=== PATIENT | female | born 1990 | race Caucasian/White ===

== ENCOUNTER 2016-11-13 08:50 | Emergency (ER) | payer MEDICAID ==
[~2016-11-13] VITALS: Ht 165.1 cm; Wt 65.0 kg
[~2016-11-13 08:50] MED LIST: MOTR200T4 PO; NAPR220T95 PO; SUDA30TA2 PO; bcp PO
[2016-11-13 08:52] VITALS: BP 114/68; PULSE 88; RESP 20; TEMP 97.6; O2SAT 95
[2016-11-13] MEDS ORDERED: PREN29TA PO (09:12)
--- NOTE | 2016-11-13 09:16 | PD ---
HPI Chief Complaint: Flank/Kidney Pain Time Seen by Provider: 09:01 Travel History International Travel<30 days: No Contact w/Intl Traveler<30days: No Traveled to known affect area: No History of Present Illness HPI The patient was seen and examined in the presence of the nurse. This patient complains of pain in her right back. No injury. Seems to bother only in the morning. Currently has minimal symptoms. She has missed one menstrual period and went to the Center where a was confirmed and estimated to be 4 or 5 weeks. She has no pelvic pain or vaginal bleeding. No vomiting or diarrhea or fever or respiratory symptoms. Duration 3 days PFSH Past Medical History Anxiety: Yes ?: LMP: SEP 2016 : 3 Para: 2 Past Surgical History Section: Yes Social History Alcohol Use: No Tobacco Use: No Substance Use: No Allergies-Medications (Allergen,Severity, Reaction): Coded Allergies: Invega Sustenna (Verified Adverse Reaction, Unknown, elevated hormone , 09/04/16) [place] (Verified Adverse Reaction, Unknown, vomiting, 09/04/16) Uncoded Allergies: saphris (Adverse Reaction, Unknown, face numbness, 09/04/16) Reported Meds & Prescriptions Reported Meds & Active Scripts Active Reported Plus Iron 29-1 mg ( Vit-Iron Carbonyl) 1 Tab Tab 1 Tab PO DAILY Review of Systems General / Constitutional: No: Fever Eyes: No: Visual changes HENT: No: Headaches Cardiovascular: No: Chest Pain or Discomfort Respiratory: No: Shortness of Breath Gastrointestinal: No: Abdominal Pain Genitourinary: No: Dysuria Musculoskeletal: Positive: Pain Skin: No Rash Neurologic: No: Weakness Psychiatric: No: Depression Endocrine: No: Polydipsia Hematologic/Lymphatic: No: Easy Bruising Physical Exam Narrative GENERAL: Well-nourished, well-developed patient in no apparent distress. SKIN: Warm and dry. HEAD: Atraumatic. Normocephalic. EYES: Pupils equal and round. No scleral icterus. No injection or drainage. ENT: No nasal bleeding or discharge. Mucous membranes pink and moist. NECK: Trachea midline. No JVD. CARDIOVASCULAR: Regular rate and rhythm. No murmur appreciated. RESPIRATORY: No accessory muscle use. Clear to auscultation. Breath sounds equal bilaterally. GASTROINTESTINAL: Abdomen soft, non-tender, nondistended. Hepatic and splenic margins not palpable. MUSCULOSKELETAL: No obvious deformities. No clubbing. No cyanosis. No edema. Reproducible tenderness in the right mid back. No bruising or swelling or spasm NEUROLOGICAL: Awake and alert. No obvious cranial nerve deficits. Motor grossly within normal limits. Normal speech. PSYCHIATRIC: Appropriate mood and affect; insight and judgment normal. Data Data Last Documented VS Vital Signs Date Time Temp Pulse Resp B/P Pulse Ox O2 Delivery O2 Flow Rate FiO2 11/13/16 08:52 97.6 88 20 114/68 95 Room Air Orders Urinalysis - C+S If Indicated (11/13/16 09:12) Labs Laboratory Tests Test 11/13/16 09:15 Urine Color YELLOW Urine Turbidity HAZY Urine pH 7.0 Urine Specific [place] 1.016 Urine Protein NEG mg/dL Urine Glucose (UA) NEG mg/dL Urine Ketones NEG mg/dL Urine Occult Blood NEG Urine Nitrite NEG Urine Bilirubin NEG Urine Urobilinogen LESS THAN 2.0 MG/DL Urine Leukocyte Esterase NEG Urine RBC 2 /hpf Urine WBC LESS THAN 1 /hpf Urine Squamous Epithelial 13 /hpf Cells Urine Amorphous Sediment RARE Urine Mucus FEW /lpf Microscopic Urinalysis Comment CULT NOT INDICATED MDM Medical Decision Making Medical Screen Exam Complete: Yes Emergency Medical Condition: Yes Medical Record Reviewed: Yes Differential Diagnosis Lumbar strain, sciatica, pyelonephritis Narrative Course I have reviewed the patient's electronic medical record. Urinalysis is normal Patient was likely stable with minimal symptoms and normal vital signs and exam without objective findings I think her pain is musculoskeletal in nature Expect gradual resolution I don't think this is having do with her Diagnosis Primary Impression: Back pain affecting Additional Instructions: The patient was advised to follow up with their physician and return if they worsen. Med/Other Pt SpecificInfo: Other Disposition: 01 DISCHARGE HOME Condition: Stable Ian Herrera MD Nov 13, 2016 09:16
[2016-11-13 09:29] LABS: BLOOD, URINE NEG (NEG); COMMENT (UR) CULT NOT INDICATED; CULTURE IF INDICATED CULT NOT INDICATED; GLUCOSE,URINE NEG (NEG); KETONE, URINE NEG (NEG); MUCUS URINE FEW /lpf (OCC); NITRITE,URINE NEG (NEG); SQUAMOUS EPITHELIAL CELL URINE 13 /hpf (0-5); URINE COLOR YELLOW (YELLW/STRAW)
== END 2016-11-13 09:51 | disposition home or self-care (01) ==
LOC: NEPC 08:50
DX: O26.91 Pregnancy related conditions, unspecified, first trimester (principal); M54.9 Dorsalgia, unspecified; Z3A.01 Less than 8 weeks gestation of pregnancy
CPT/HCPCS: 81001; 99283

== ENCOUNTER 2017-04-04 16:57 | Emergency (ER) | payer MEDICAID ==
[~2017-04-04 16:57] MED LIST changes: -MOTR200T4 PO; -NAPR220T95 PO; +PREN29TA PO; -SUDA30TA2 PO; -bcp PO
--- NOTE | 2017-04-04 18:39 | PD ---
HPI Chief Complaint dizzy, SOB, heart palpitations Date Seen: Apr 04, 2017 Travel History International Travel<30 Days: No Contact w/Intl Traveler<30Days: No Known Affected Area: No History of Present Illness HPI 26y/o , IUP at 27.1 PNC complicated by h/o depression (no meds x6y), C/S x2, back problems and h/o herniated disc Patient presents c/o intermittent episodes of dizzyness that is associated with SOB and palitations several times a day. She reports these episodes last up to a hlaf hour and this last occurred this morning at 9:30am. She didn't come in initially because she was called into work. She reports these episodes start with feeling dizzy and associated difficulty breathing; she reports that she feels like her heart is going to "beat out of her chest" with palpitations. She reports she usually feels like she's going to pass out and felt that way this morning. She reports that the symptoms improve with lying down. She denies any N /V, F/C. She reports good FM. She denies any LOF or VB. She denies any ctx or painful cramping. She has no other complaints today. She reports she called her dr office and was told to come to [facility]. Para: 2 : 3 Miscarriage: 0 : 0 History Past Medical History Narrative Medical Depression Back issues Herniated discs Obstetric History Obstetric History FT C/S x2 Past Surgical History Narrative Surgical C/S x2 Family History Narrative Family History HTN Autism MR FAS Seizure d/o CAD [place] Social History Alcohol Use: No Tobacco Use: No Substance Abuse: No Allergies-Medications (Allergen,Severity, Reaction): Coded Allergies: Invega Sustenna (Verified Adverse Reaction, Unknown, elevated hormone , 09/04/16) [place] (Verified Adverse Reaction, Unknown, vomiting, 09/04/16) Uncoded Allergies: saphris (Adverse Reaction, Unknown, face numbness, 09/04/16) Home Meds Reported Medications Vit-Iron Carbonyl ( Plus Iron 29-1 mg)1 Tab Tab1 Tab PO DAILY #30 TAB Ref 0 11/13/16 Review of Systems Except as stated in HPI: all other systems reviewed are Neg Cardiovascular: Irregular Rhythm, Palpitations Respiratory: Short of Breath Neurologic: Dizziness Physical Exam Narrative GENERAL: Well-nourished, well-developed patient. SKIN: Warm and dry. HEAD: Normocephalic and atraumatic. EYES: No scleral icterus. No injection or drainage. ENT: No nasal drainage noted. Mucous membranes pink. Airway patent. NECK: Supple, trachea midline. No JVD. CARDIOVASCULAR: Regular rate and rhythm without murmurs, gallops, or rubs. RESPIRATORY: Breath sounds equal bilaterally. No accessory muscle use. BREASTS: Bilateral exam showed no masses , no retractions, no nipple discharge. ABDOMEN/GI: Abdomen soft, non-tender, bowel sounds present, no rebound, no guarding Gravid GENITOURINARY: Deferred Uterine Contractions: none FHT's: Category: one Baseline: 140s Reactive: reactive for gestational age Variability: moderate LTV, good accels Decels: no decels EXTREMITIES: No cyanosis or edema. BACK: Nontender without obvious deformity. No CVA tenderness. NEUROLOGICAL: Awake and alert. Motor and sensory grossly within normal limits. Five out of 5 muscle strength in all muscle groups. Normal speech. PSYCH: grosslly [place] ROM, gait, muscle strength MS grossly normal ROM, gait, muscle strength Data Data Orders Cbc No Diff, Includes Plts (04/04/17 18:09) Comprehensive Metabolic Panel (04/04/17 18:09) Magnesium (Mg) (04/04/17 18:09) MDM Plan A/P: 26y/o 1. IUP at 26 2. Dizzyness, SOB, CP: all symptoms resolved and asymptomatic at present, labs overall normal but with low-normal K 3.7 and Mag 1.8. Discussed with patient, will rx KCl 40mew and Max oxide 400mg to optimize levels. Advised patient to be evaluated in ED for palpitations and SOB (although with symptoms entirely resolved and normal VS). All patient's questions answered, encourage good hydration. 3. wellbeing: FHR appropriate and reassuring for gestational age, FHR reactive for gestational age, FKC daily. 4. h/o depression 5. h/o prior C/S x2 6. F/U with primary Ob in 2d or sooner if needed Diagnosis Diagnosis: Primary Impression: 27 weeks gestation of Disposition: 01 DISCHARGE HOME Patient Instructions: Diet (GEN), Movement (ED), Early Labor Signs (ED), General Instructions Ellie Woods MD Apr 04, 2017 18:39
[2017-04-04 18:42] LABS: HEMATOCRIT 35.1 % (35.0-46.0); MEAN CELL VOLUME 87.9 FL (80.0-100.0); MEAN CORPUSCULAR HEMOGLOBIN 29.9 PG (27.0-34.0); PLATELET COUNT 138 TH/MM3 (150-450); RED CELL DISTRIBUTION WIDTH 12.9 % (11.6-17.2); REVIEW FLAG FINAL; WHITE BLOOD COUNT 11.2 TH/MM3 (4.0-11.0)
[2017-04-04 19:02] LABS: ANION GAP 9 MEQ/L (5-15); BICARBONATE 21.7 MEQ/L (21.0-32.0); BLOOD UREA NITROGEN 10 MG/DL (7-18); CHLORIDE 107 MEQ/L (98-107); GLOMERULAR FILTRATION RATE 216 ML/MIN (>89); MAGNESIUM 1.8 MG/DL (1.5-2.5); POTASSIUM 3.7 MEQ/L (3.5-5.1); SODIUM (NA) 138 MEQ/L (136-145)
[2017-04-04 19:03] LABS: ALT (GPT) 13 U/L (10-53); AST (GOT) 13 U/L (15-37)
[2017-04-04 19:06] LABS: ALKALINE PHOSPHATASE 73 U/L (45-117); TOTAL BILIRUBIN ADULT 0.3 MG/DL (0.2-1.0)
[2017-04-04] MEDS ORDERED: MAGNESIUM OXIDE 400 MG TAB PO ONE (19:15)
[2017-04-04] MEDS ORDERED: POTASSIUM CHLORIDE 20 MEQ CONTROLLED RELEASE TAB PO ONE (19:15)
== END 2017-04-04 20:28 | disposition home or self-care (01) ==
LOC: HOBED 16:57
DX: O26.899 Other specified pregnancy related conditions, unspecified trimester (principal); R42 Dizziness and giddiness; R06.02 Shortness of breath; R07.9 Chest pain, unspecified; I10 Essential (primary) hypertension; F84.0 Autistic disorder; F79 Unspecified intellectual disabilities; G40.909 Epilepsy, unspecified, not intractable, without status epilepticus; Z3A.27 27 weeks gestation of pregnancy
CPT/HCPCS: 36415; 80053; 83735; 85027; 99283

== ENCOUNTER 2017-04-22 16:54 | Emergency (ER) | payer MEDICAID ==
[~2017-04-22] VITALS: Ht 162.6 cm; Wt 93.0 kg
--- NOTE | 2017-04-22 18:20 | PD ---
HPI Chief Complaint Abdominal pain increase in vaginal pressure decreased movement Date Seen: Apr 22, 2017 Travel History International Travel<30 Days: No Contact w/Intl Traveler<30Days: No Known Affected Area: No History of Present Illness HPI Patient is 26-year-old white female previous [address] Stevenson who presents complaining of decreased movement today in a baby that she's says is moving all the time and increased vaginal pressure noted today. She denies bleeding or leakage of fluid. No contractions. heart rate tracing is reactive. Para: 2 : 3 History Obstetric History Obstetric History 2 C-sections Past Surgical History Narrative Surgical C-sections Social History Alcohol Use: No Tobacco Use: No Substance Abuse: No Allergies-Medications (Allergen,Severity, Reaction): Coded Allergies: Invega Sustenna (Verified Adverse Reaction, Unknown, elevated hormone , 09/04/16) [place] (Verified Adverse Reaction, Unknown, vomiting, 09/04/16) Uncoded Allergies: saphris (Adverse Reaction, Unknown, face numbness, 09/04/16) Home Meds Reported Medications Vit-Iron Carbonyl ( Plus Iron 29-1 mg)1 Tab Tab1 Tab PO DAILY #30 TAB Ref 0 11/13/16 Review of Systems General / Constitutional: No: Fever, Weight Gain, Chills, Other Eyes: No: Diploplia, Blurred Vision, Visual changes, Pain, Photophobia HENT: No: Headaches, Vertigo, Lightheadedness Cardiovascular: No: Irregular Rhythm, Chest Pain or Discomfort, Palpitations, Tachycardia, Syncope, Varicosities, Edema, Cyanosis Respiratory: No: Cough, Short of Breath, Other Gastrointestinal: Abdominal Pain, No: Nausea, Vomiting, Diarrhea Genitourinary: No: Decreased Urinary Output, Oliguria Musculoskeletal: No: Limited ROM, Weakness, Cramping, Edema, Pain Skin: No Rash, No Itching, No Dryness, No Lumps, No Change in Pigmentation, No Change in Nails, No Alopecia, No Lesions Neurologic: No: Weakness, Dizziness, Syncope, Focal Abnormalities, Coordination Problem, Headache, Slurred Speech, Seizures Psychiatric: No: Depression, Suicidal Ideations, Homicidal Ideation Endocrine: No: Heat Intolerance, Cold Intolerance, Polydipsia, Polyuria, Other Physical Exam Narrative GENERAL: Well-nourished, well-developed patient. SKIN: Warm and dry. HEAD: Normocephalic and atraumatic. EYES: No scleral icterus. No injection or drainage. ENT: No nasal drainage noted. Mucous membranes pink. Airway patent. NECK: Supple, trachea midline. No JVD. CARDIOVASCULAR: Regular rate and rhythm without murmurs, gallops, or rubs. RESPIRATORY: Breath sounds equal bilaterally. No accessory muscle use. BREASTS: Bilateral exam showed no masses , no retractions, no nipple discharge. ABDOMEN/GI: Abdomen soft, non-tender, bowel sounds present, no rebound, no guarding Gravid to [29-] weeks size Fundal Height: [29-] GENITOURINARY: External Genitalia: intact and normal in appearance BUS glands: [-] Cervix: [Closed-] Dilatation: [-Closed] Effacement: [-Thick] Station: [-3] Membranes: [intact ] Uterine Contractions: [none-] FHT's: Category: [1-] Baseline: [-133] Reactive: [yes-] Variability: [-mod] Decels: [none-] EXTREMITIES: No cyanosis or edema. BACK: Nontender without obvious deformity. No CVA tenderness. NEUROLOGICAL: Awake and alert. Motor and sensory grossly within normal limits. Five out of 5 muscle strength in all muscle groups. Normal speech. Data Data Labs Urine dip negative for UTI MDM Interpretation(s) Patient is 26-year-old white female previous 2 at 29 weeks a patient of Dr. Stevenson who presents complaining of increasing pelvic pressure and decreased movement, heart tones are reactive and no contractions. Cervix is closed thick and high and there is no pressure in the vaginal vault that I can discern his true real pressure essentially normal exam , urinalysis negative, Plan The patient take today and tomorrow off from work and rested as much as possible and I will give her a work note for that she is to follow-up with her OB provider Diagnosis Diagnosis: Primary Impression: Decreased movement affecting management of in third trimester Additional Impression: Pelvic pressure in , antepartum Disposition: 01 DISCHARGE HOME Condition: Stable Departure Forms: Tests/Procedures, Work Release Enter return to work date: Apr 24, 2017 Special Instructions: bedrest at home today and tomorrow Hardik Dukes II, MD Apr 22, 2017 18:20
== END 2017-04-22 18:27 | disposition home or self-care (01) ==
LOC: HOBED 16:54
DX: O36.8130 Decreased fetal movements, third trimester, not applicable or unspecified (principal); R10.2 Pelvic and perineal pain; Z3A.29 29 weeks gestation of pregnancy
CPT/HCPCS: 99284

== ENCOUNTER 2017-05-21 16:58 | Emergency (ER) | payer MEDICAID ==
[~2017-05-21] VITALS: Ht 162.6 cm; Wt 99.8 kg
--- NOTE | 2017-05-21 17:46 | PD ---
HPI Chief Complaint ABDOMINAL PAIN 33 WEEKS AND 6 DAYS Date Seen: May 21, 2017 Time Seen: 17:30 Travel History International Travel<30 Days: No Contact w/Intl Traveler<30Days: No Known Affected Area: No History of Present Illness HPI Pt is a 26 yo at 33 weeks and 6 days . EDC 07-03-2017, scheduled for repeat C Section 1 [address] earlier Care with Dr Stevenson.Pt describes pelvic pressure and abdominal and back pain since this morning. Constant. No vaginal bleeding or leak No fevers, no urinary symptoms Weeks Gestation: 33 Para: 2 : 3 History Past Medical History Narrative Medical h/o depression. has been on antidepressants in the past but none recently Obstetric History Obstetric History 2 prior c sections Past Surgical History Narrative Surgical 2 prior C Sections Family History Family History: Negative Social History Alcohol Use: No Tobacco Use: No Substance Abuse: No Allergies-Medications (Allergen,Severity, Reaction): Coded Allergies: lithium (Unverified Adverse Reaction, Unknown, vomiting, 05/02/17) paliperidone (Unverified Adverse Reaction, Unknown, elevated hormone , 05/02/17) Uncoded Allergies: saphris (Adverse Reaction, Unknown, face numbness, 09/04/16) Home Meds Reported Medications Vit-Iron Carbonyl ( Plus Iron 29-1 mg) 1 Tab Tab, 1 TAB PO DAILY for Nutritional Supplement, #30 TAB 0 Refills 11/13/16 Review of Systems Except as stated in HPI: all other systems reviewed are Neg Physical Exam Narrative GENERAL: Well-nourished, well-developed patient. SKIN: Warm and dry. HEAD: Normocephalic and atraumatic. EYES: No scleral icterus. No injection or drainage. ENT: No nasal drainage noted. Mucous membranes pink. Airway patent. NECK: Supple, trachea midline. No JVD. CARDIOVASCULAR: Regular rate and rhythm without murmurs, gallops, or rubs. RESPIRATORY: Breath sounds equal bilaterally. No accessory muscle use. BREASTS: Bilateral exam showed no masses , no retractions, no nipple discharge. ABDOMEN/GI: Abdomen soft, non-tender, bowel sounds present, no rebound, no guarding Gravid to [34] weeks size Fundal Height: [34] GENITOURINARY: External Genitalia: intact and normal in appearance BUS glands: [-] Cervix: [firm] Dilatation: [closed] Effacement: [uneffaced Station: [-3 Presentation: [vertex] Membranes: [intact] Uterine Contractions: [none] FHT's: Category: [1] Baseline: [130s] Reactive: [-] Variability: [moderate] Decels: [none] EXTREMITIES: No cyanosis or edema. BACK: Nontender without obvious deformity. No CVA tenderness. NEUROLOGICAL: Awake and alert. Motor and sensory grossly within normal limits. Five out of 5 muscle strength in all muscle groups. Normal speech. Data Data Vital Signs Reviewed: Yes MDM Interpretation(s) pelvic pain, abdominal pain. Cervix closed, no uterine contractions. FHR Cat 1 No CVA tenderness Plan Urinalysis pending. UA not suggestive of infection Advised Tylenol 500mg i-ii po q 4 hourly, max 4 tablets in 24 hours Diagnosis Diagnosis: Primary Impression: Pelvic pressure in , antepartum Additional Impressions: Abdominal pain complicating , antepartum 33 weeks gestation of Disposition: DISCHARGE HOME Condition: Stable Nathaniel Guevara MD May 21, 2017 17:46
[2017-05-21 17:48] LABS: BACTERIA, URINE OCC /hpf; BLOOD, URINE SMALL (NEG); COMMENT (UR) CULTURE INDICATED; CULTURE IF INDICATED CULTURE INDICATED; GLUCOSE,URINE NEG (NEG); KETONE, URINE NEG (NEG); MUCUS URINE FEW /lpf (OCC); NITRITE,URINE NEG (NEG); SQUAMOUS EPITHELIAL CELL URINE 25 /hpf (0-5); TRANSITIONAL EPI CELLS, URINE 1 /hpf; URINE COLOR YELLOW (YELLW/STRAW)
== END 2017-05-21 18:21 | disposition home or self-care (01) ==
LOC: HOBED 16:58
DX: O26.893 Other specified pregnancy related conditions, third trimester (principal); R10.2 Pelvic and perineal pain; O99.343 Other mental disorders complicating pregnancy, third trimester; F32.9 Major depressive disorder, single episode, unspecified; Z3A.33 33 weeks gestation of pregnancy
CPT/HCPCS: 81001; 87086; 99283

== ENCOUNTER 2017-06-03 19:34 | Emergency (ER) | payer MEDICAID ==
--- NOTE | 2017-06-03 20:42 | PD ---
HPI Chief Complaint Pelvic pressure Date Seen: Jun 03, 2017 Time Seen: 20:34 Travel History International Travel<30 Days: No Contact w/Intl Traveler<30Days: No Known Affected Area: No History of Present Illness HPI 26-year-old 3 para 2 at 35+ weeks gestation who comes tonight due to pelvic pressure. She reports good movement. She denies leakage of fluid , bleeding or contractions. She just feels like the baby has gotten very low. Para: 2 : 3 Allergies-Medications (Allergen,Severity, Reaction): Coded Allergies: lithium (Unverified Adverse Reaction, Unknown, vomiting, 05/02/17) paliperidone (Unverified Adverse Reaction, Unknown, elevated hormone , 05/02/17) Uncoded Allergies: saphris (Adverse Reaction, Unknown, face numbness, 09/04/16) Home Meds Reported Medications Vit-Iron Carbonyl ( Plus Iron 29-1 mg) 1 Tab Tab, 1 TAB PO DAILY for Nutritional Supplement, #30 TAB 0 Refills 11/13/16 Review of Systems Except as stated in HPI: all other systems reviewed are Neg Physical Exam Narrative GENERAL: Well-nourished, well-developed patient. SKIN: Warm and dry. HEAD: Normocephalic and atraumatic. EYES: No scleral icterus. No injection or drainage. ENT: No nasal drainage noted. Mucous membranes pink. Airway patent. NECK: Supple, trachea midline. No JVD. CARDIOVASCULAR: Regular rate and rhythm without murmurs, gallops, or rubs. RESPIRATORY: Breath sounds equal bilaterally. No accessory muscle use. ABDOMEN/GI: Abdomen soft, non-tender, bowel sounds present, no rebound, no guarding Gravid to [-] weeks size Fundal Height: [-] GENITOURINARY: External Genitalia: intact and normal in appearance BUS glands: [Negative-] Cervix: [-] Dilatation: [-Closed] Effacement: [Long-] Station: [--] Presentation: [-] Membranes: [intact] Uterine Contractions: [-] FHT's: Category: [-] Baseline: [-] Reactive: [-Yes] Variability: [-] Decels: [-] EXTREMITIES: No cyanosis or edema. BACK: Nontender without obvious deformity. No CVA tenderness. NEUROLOGICAL: Awake and alert. Motor and sensory grossly within normal limits. Five out of 5 muscle strength in all muscle groups. Normal speech. MDM Medical Record Reviewed: Yes Narrative Course / MDM Assessment: 35 week multipara with pelvic pressure without evidence of labor Plan: Continue routine care Diagnosis Diagnosis: Primary Impression: 35 weeks gestation of Additional Impression: Pelvic pressure in , antepartum Disposition: 01 DISCHARGE HOME Condition: Good Patient Instructions: General Instructions, Having Your Baby: The Labor Process (GEN), Abdominal Pain in (ED) Departure Forms: Tests/Procedures Ricky Pritchard MD Jun 03, 2017 20:42
== END 2017-06-03 20:44 | disposition home or self-care (01) ==
LOC: HOBED 19:34
DX: O26.893 Other specified pregnancy related conditions, third trimester (principal); R10.2 Pelvic and perineal pain; Z3A.35 35 weeks gestation of pregnancy; Z88.8 Allergy status to other drugs, medicaments and biological substances
CPT/HCPCS: 59025

== ENCOUNTER 2017-06-06 11:30 | Emergency (ER) | payer MEDICAID ==
[~2017-06-06] VITALS: Ht 162.6 cm; Wt 103.0 kg
--- NOTE | 2017-06-06 13:21 | PD ---
HPI Chief Complaint Decreased FM Travel History International Travel<30 Days: No Contact w/Intl Traveler<30Days: No Known Affected Area: No History of Present Illness HPI 26-year-old, , IUP at 36.1 care, located by obesity Patient presents complaining of decreased movement today, so she called physician's office who recommended she do kick counts at home. On her attempt at kick counts at home she didn't feel the required amount of movement as instructed by her physician so decided to come to the hospital as was recommended by her physician. She did do kick counts after drinking a glass of water. She didn't attempt a trial of kick counts after eating or drinking juice. She reports that since she arrived she is felt good movement that is normal. She denies any leaking of fluid or vaginal bleeding. She denies any painful contraction. She has no other complaints or concerns today. Weeks Gestation: 36 Para: 2 : 3 History Obstetric History Obstetric History 3 para 2002 2 Past Surgical History Narrative Surgical 2 Family History Narrative Family History Hypertension, hypercholesterolemia, autism/mental retardation Social History Alcohol Use: No Tobacco Use: No Substance Abuse: No Allergies-Medications (Allergen,Severity, Reaction): Coded Allergies: lithium (Unverified Adverse Reaction, Unknown, vomiting, 05/02/17) paliperidone (Unverified Adverse Reaction, Unknown, elevated hormone , 05/02/17) Uncoded Allergies: saphris (Adverse Reaction, Unknown, face numbness, 09/04/16) Home Meds Reported Medications Vit-Iron Carbonyl ( Plus Iron 29-1 mg) 1 Tab Tab, 1 TAB PO DAILY for Nutritional Supplement, #30 TAB 0 Refills 11/13/16 Review of Systems Except as stated in HPI: all other systems reviewed are Neg Physical Exam Narrative GENERAL: Well-nourished, well-developed patient. SKIN: Warm and dry. HEAD: Normocephalic and atraumatic. EYES: No scleral icterus. No injection or drainage. ENT: No nasal drainage noted. Mucous membranes pink. Airway patent. NECK: Supple, trachea midline. No JVD. CARDIOVASCULAR: Regular rate and rhythm without murmurs, gallops, or rubs. RESPIRATORY: Breath sounds equal bilaterally. No accessory muscle use. BREASTS: Deferred ABDOMEN/GI: Abdomen soft, non-tender, bowel sounds present, no rebound, no guarding Gravid GENITOURINARY: Deferred FHT's: See separate report but baseline 140s with reactive NST EXTREMITIES: No cyanosis or edema. BACK: Nontender without obvious deformity. No CVA tenderness. NEUROLOGICAL: Awake and alert. Motor and sensory grossly within normal limits. Five out of 5 muscle strength in all muscle groups. Normal speech. Musculoskeletal: Grossly normal range of motion, gait, muscular strength Psychiatric: Grossly normal membrane and affect Data Data Orders Orders Attending Discharge Order (06/06/17 ) MDM Plan Assessment/plan: 1. IUP at 36.1 2. Decreased movement: Patient had reassuring testing and now feels good and normal movement. A biophysical profile was 10 out of 10 with a reactive NST daily kick counts were recommended. 3. Obesity 4. Prior delivery 2: Patient reports her has already been scheduled 5. Follow up with primary OB in 1-2 days or sooner if needed Diagnosis Diagnosis: Primary Impression: 36 weeks gestation of Disposition: 01 DISCHARGE HOME Condition: Good Patient Instructions: General Instructions, Labor (ED), Movement (ED) Departure Forms: Tests/Procedures Ellie Woods MD Jun 06, 2017 13:21
--- NOTE | 2017-06-06 13:25 | PD ---
History of Present Illness History of Present Illness NST/BPP report Indications 1. IUP at 36.1, 2. Obesity, 3. Decreased movement NST reactive with baseline 140s, moderate long-term variability, good accelerations, no decelerations. BPP with greater than 30 seconds breathing, greater than 3 gross movements, flexion and extension noted, and RADHA 14.45 (4.99, 3.17, 4.20, 2.09) Final results with BPP 10 out of 10 Follow-up: Follow-up as clinically indicated Final diagnosis IUP at 36.1, obesity, reassuring testing with reactive NST and reassuring biophysical profile Ellie Woods MD Jun 06, 2017 13:25
== END 2017-06-06 15:21 | disposition home or self-care (01) ==
LOC: HOBED 11:30
DX: O36.8130 Decreased fetal movements, third trimester, not applicable or unspecified (principal); O99.213 Obesity complicating pregnancy, third trimester; Z3A.36 36 weeks gestation of pregnancy
CPT/HCPCS: 59025; 76815

== ENCOUNTER 2017-06-26 12:37 | Inpatient (IN) | payer MEDICAID ==
[~2017-06-26] VITALS: Ht 162.6 cm; Wt 104.0 kg
[~2017-06-26 12:37] MED LIST changes: +DEXAMETHASONE SOD PHOS 4 MG/ML VIAL IV ONE; +LACTATED RINGER'S 1000 ML INJ 2,000 ML IV ONE; +MORPHINE SULFATE PF 5 MG/10 ML VIAL ONE; +ONDANSETRON HCL 4 MG/2 ML VIAL IV PUSH ONE; +OXYTOCIN 10 UNIT/ML AMP IV ONE; +PHENYLEPH/NS 1000 MCG/10 ML SYR IV ONE; +PROPOFOL 200 MG/20 ML AMP IV ONE
--- NOTE | 2017-06-26 13:40 | PD ---
HPI Chief Complaint Low back pain radiating around to the groin area bilaterally at 9:30 this morning Date Seen: Jun 26, 2017 Time Seen: 13:30 Travel History International Travel<30 Days: No Contact w/Intl Traveler<30Days: No Known Affected Area: No History of Present Illness HPI Patient is 26-year-old white female previous 2 scheduled for repeat tomorrow with tubal with , she presents complaining of low back pain that radiates around to the groin on both sides since 9:30 this morning. Prior to that she was doing well. She denies bleeding or rupture the membranes. heart rate tracing is reactive and she is having a few contractions small and irregular Weeks Gestation: 39 Para: 2 : 3 History Obstetric History Obstetric History 2 previous C-sections and scheduled for repeat tubal tomorrow Past Surgical History Narrative Surgical 2 C-sections Social History Alcohol Use: No Tobacco Use: No Substance Abuse: No Allergies-Medications (Allergen,Severity, Reaction): Coded Allergies: lithium (Unverified Adverse Reaction, Unknown, vomiting, 05/02/17) paliperidone (Unverified Adverse Reaction, Unknown, elevated hormone , 05/02/17) Uncoded Allergies: saphris (Adverse Reaction, Unknown, face numbness, 09/04/16) Home Meds Reported Medications Vit-Iron Carbonyl ( Plus Iron 29-1 mg) 1 Tab Tab, 1 TAB PO DAILY for Nutritional Supplement, #30 TAB 0 Refills 11/13/16 Review of Systems General / Constitutional: No: Fever, Weight Gain, Chills, Other Eyes: No: Diploplia, Blurred Vision, Visual changes, Pain, Photophobia HENT: No: Headaches, Vertigo, Lightheadedness Cardiovascular: No: Irregular Rhythm, Chest Pain or Discomfort, Palpitations, Tachycardia, Syncope, Varicosities, Edema, Cyanosis Respiratory: No: Cough, Short of Breath, Other Gastrointestinal: No: Nausea, Vomiting, Diarrhea Genitourinary: No: Decreased Urinary Output, Oliguria Musculoskeletal: Pain, No: Limited ROM, Weakness, Cramping, Edema Skin: No Rash, No Itching, No Dryness, No Lumps, No Change in Pigmentation, No Change in Nails, No Alopecia, No Lesions Neurologic: No: Weakness, Dizziness, Syncope, Focal Abnormalities, Coordination Problem, Headache, Slurred Speech, Seizures Psychiatric: No: Depression, Suicidal Ideations, Homicidal Ideation Endocrine: No: Heat Intolerance, Cold Intolerance, Polydipsia, Polyuria, Other Physical Exam Narrative GENERAL: Well-nourished, well-developed patient. SKIN: Warm and dry. HEAD: Normocephalic and atraumatic. EYES: No scleral icterus. No injection or drainage. ENT: No nasal drainage noted. Mucous membranes pink. Airway patent. NECK: Supple, trachea midline. No JVD. CARDIOVASCULAR: Regular rate and rhythm without murmurs, gallops, or rubs. RESPIRATORY: Breath sounds equal bilaterally. No accessory muscle use. BREASTS: Bilateral exam showed no masses , no retractions, no nipple discharge. ABDOMEN/GI: Abdomen soft, non-tender, bowel sounds present, no rebound, no guarding Gravid to [-39] weeks size Fundal Height: [-39] GENITOURINARY: External Genitalia: intact and normal in appearance BUS glands: [-] Cervix: [-post] Dilatation: [-0] Effacement: [0-] Station: [-3] Presentation: [-vtx] Membranes: [intact ] Uterine Contractions: [-irreg ] FHT's: Category: [-1] Baseline: [150-] Reactive: [-yes] Variability: [-mod] Decels: [-none] EXTREMITIES: No cyanosis or edema. BACK: Nontender without obvious deformity. No CVA tenderness. NEUROLOGICAL: Awake and alert. Motor and sensory grossly within normal limits. Five out of 5 muscle strength in all muscle groups. Normal speech. Data Data Orders Orders Meperidine Inj (Demerol Inj) (06/26/17 13:45) Labs Urine dip showed large blood microscopically otherwise all negative MDM Interpretation(s) Patient 26-year-old white female previous [address] Stevenson who presents complaining of low back pain radiates around the front since 9:30 this morning. Patient is scheduled for repeat tubal tomorrow at noon, para tracing is reactive she is lisa irregularly with small barely perceptible contractions, cervix is closed thick and high, urinalysis on dipstick showed a large blood microscopically but otherwise negative so this may be a small urinary stone versus muscular skeletal pain. Plan Plan the patient IM shot of Demerol Phenergan for pain relief, she is to be discharged home to bedrest heating pad or hot bath, use Tylenol as needed. Increase her oral intake to try to flush the bladder and or possible stone, she is show a period tomorrow at 9:30 for her at 11:30. Diagnosis Diagnosis: Primary Impression: Back pain affecting Additional Impression: Previous delivery affecting , antepartum Disposition: DISCHARGE HOME Condition: Stable Hardik Dukse II, MD Jun 26, 2017 13:39
[2017-06-26] MEDS ORDERED: MEPERIDINE HCL 50 MG/ML VIAL IM ONE (13:45)
[2017-06-26] MEDS ORDERED: PROMETHAZINE INJ 25 MG/ML VIAL IM ONE (13:45)
[2017-06-26] MEDS ORDERED: LACTATED RINGER'S 1000 ML IV ONE (16:00)
[2017-06-26 16:27] LABS: AUTOMATED NEUTROPHIL # 7.9 TH/MM3 (1.8-7.7); BACTERIA, URINE RARE /hpf; BASOPHIL % 0.2 % (0.0-2.0); BLOOD, URINE MOD (NEG); COMMENT (UR) CULT NOT INDICATED; CULTURE IF INDICATED CULT NOT INDICATED; EOSINOPHIL # 0.1 TH/MM3 (0-0.4); EOSINOPHIL % 0.7 % (0.0-4.0); GLUCOSE,URINE NEG (NEG); HEMATOCRIT 37.4 % (35.0-46.0); HEMO FLAGS DIFF FINAL; KETONE, URINE NEG (NEG); LYMPH % 18.3 % (9.0-44.0); MEAN CELL VOLUME 86.6 FL (80.0-100.0); MEAN CORPUSCULAR HEMOGLOBIN 29.5 PG (27.0-34.0); MEAN CORPUSCULAR HGB CONC 34.1 % (32.0-36.0); MONO % 8.7 % (0.0-8.0); NEUT % 72.1 % (16.0-70.0); NITRITE,URINE NEG (NEG); PLATELET COUNT 152 TH/MM3 (150-450); RED BLOOD COUNT 4.32 MIL/MM3 (4.00-5.30); SQUAMOUS EPITHELIAL CELL URINE 6 /hpf (0-5); URINE COLOR LIGHT-YELLOW (YELLW/STRAW)
[2017-06-26] MEDS ORDERED: ceFAZolin 2 GM PREMIX 50 ML IV SCH (16:30)
[2017-06-26] MEDS ORDERED: LACTATED RINGER'S 1000 ML IV SCH (16:30)
[2017-06-26] MEDS ORDERED: CITRIC ACID-SODIUM CITRATE LIQ 30 ML UDC PO SCH (16:30)
[2017-06-26 16:49] VITALS: BP 108/54; PULSE 82
--- NOTE | 2017-06-26 17:57 | HHI.HP ---
HPI Chief Complaint Repeat Date Seen: Jun 26, 2017 Travel History International Travel<30 Days: No Contact w/Intl Traveler<30Days: No Known Affected Area: No History of Present Illness HPI Patient is a 26 year old at 39-0/7 weeks gestation who was initially scheduled for repeat on 06/25 but presented today to the OB ED with pain and will undergo repeat today. She denies any vaginal bleeding or discharge. No gush or leaking of fluid. Positive movement. History Past Medical History Narrative Medical MDD PTSD Anxiety Obstetric History Obstetric History Section 11/25 9 pound male Section 2013 9 lb male Past Surgical History Narrative Surgical Section 2009, 2013 Family History Narrative Family History HLD Social History Alcohol Use: No Tobacco Use: No Substance Abuse: No Allergies-Medications (Allergen,Severity, Reaction): Coded Allergies: lithium (Unverified Adverse Reaction, Unknown, vomiting, 05/02/17) paliperidone (Unverified Adverse Reaction, Unknown, elevated hormone , 05/02/17) Uncoded Allergies: saphris (Adverse Reaction, Unknown, face numbness, 09/04/16) Home Meds Reported Medications Vit-Iron Carbonyl ( Plus Iron 29-1 mg) 1 Tab Tab, 1 TAB PO DAILY for Nutritional Supplement, #30 TAB 0 Refills 11/13/16 Review of Systems Except as stated in HPI: all other systems reviewed are Neg General / Constitutional: No: Fever, Chills Eyes: No: Visual changes HENT: No: Headaches Cardiovascular: No: Chest Pain or Discomfort Respiratory: No: Short of Breath Gastrointestinal: No: Nausea, Abdominal Pain Genitourinary: Pelvic Pain, No: Dysuria, Hematuria, Discharge, Vaginal Bleeding Musculoskeletal: No: Edema Neurologic: No: Headache Physical Exam Vital Signs Date Time Temp Pulse Resp B/P (MAP) Pulse Ox O2 Delivery O2 Flow Rate FiO2 06/26/17 16:49 82 108/54 (72) Narrative GENERAL: Well-nourished, well-developed patient. SKIN: Warm and dry. HEAD: Normocephalic and atraumatic. EYES: No scleral icterus. No injection or drainage. ENT: No nasal drainage noted. Mucous membranes pink. Airway patent. NECK: Supple, trachea midline. No JVD. CARDIOVASCULAR: Regular rate and rhythm without murmurs, gallops, or rubs. RESPIRATORY: Breath sounds equal bilaterally. No accessory muscle use. ABDOMEN/GI: Abdomen soft, non-tender, bowel sounds present, no rebound, no guarding Gravid to 39 weeks size GENITOURINARY: External Genitalia: intact and normal in appearance Membranes: intact Uterine Contractions: none FHT's: Category: I Baseline: 146 Reactive: + Variability: moderate Decels: none EXTREMITIES: No cyanosis or edema. BACK: Nontender without obvious deformity. No CVA tenderness. NEUROLOGICAL: Awake and alert. Motor and sensory grossly within normal limits. Normal speech. Caprini VTE Risk Assessment Caprini VTE Risk Assessment: No/Low Risk (score <= 1) Caprini Risk Assessment Model Point Value = 1 Point Value = 2 Point Value = 3 Point Value = 5 Age 41-60 Minor surgery BMI > 25 kg/m2 Swollen legs Varicose veins or History of unexplained or recurrent spontaneous Oral contraceptives or hormone replacement Sepsis (< 1 month) Serious lung disease, including pneumonia (< 1 month) Abnormal pulmonary function Acute myocardial infarction Congestive heart failure (< 1 month) History of inflammatory bowel disease Medical patient at bed rest Age 61-74 Arthroscopic surgery Major open surgery (> 45 min) Laparoscopic surgery (> 45 min) Malignancy Confined to bed (> 72 hours) Immobilizing plaster cast Central venous access Age >= 75 History of VTE Family history of VTE Factor V Leiden Prothrombin [id number] Lupus anticoagulant Anticardiolipin antibodies Elevated serum homocysteine Heparin-induced thrombocytopenia Other congenital or acquired thrombophilia Stroke (< 1 month) Elective arthroplasty Hip, pelvis, or leg fracture Acute spinal cord injury (< 1 month) Prophylaxis Regimen Total Risk Factor Score Risk Level Prophylaxis Regimen 0-1 Low Early ambulation 2 Moderate Order ONE of the following: *Sequential Compression Device (SCD) *Heparin 5000 units SQ BID 3-4 Higher Order ONE of the following medications: *Heparin 5000 units SQ TID *Enoxaparin/Lovenox 40 mg SQ daily (WT < 150 kg, CrCl > 30 mL/min) *Enoxaparin/Lovenox 30 mg SQ daily (WT < 150 kg, CrCl > 10-29 mL/min) *Enoxaparin/Lovenox 30 mg SQ BID (WT < 150 kg, CrCl > 30 mL/min) AND/OR *Sequential Compression Device (SCD) 5 or more Highest Order ONE of the following medications: *Heparin 5000 units SQ TID (Preferred with Epidurals) *Enoxaparin/Lovenox 40 mg SQ daily (WT < 150 kg, CrCl > 30 mL/min) *Enoxaparin/Lovenox 30 mg SQ daily (WT < 150 kg, CrCl > 10-29 mL/min) *Enoxaparin/Lovenox 30 mg SQ BID (WT < 150 kg, CrCl > 30 mL/min) AND *Sequential Compression Device (SCD) Data Data Vital Signs Reviewed: Yes Orders Orders Meperidine Inj (Demerol Inj) (06/26/17 13:45) Promethazine Inj (Phenergan Inj) (06/26/17 13:45) Ob (2e) Additional Admit Info (06/26/17 13:58) Code Status (06/26/17 16:00) Vital Signs (Adult) .ON ADMISSION (06/26/17 16:00) Activity Oob Ad Eli (06/26/17 16:00) Heart (06/26/17 16:00) Urinary Catheter Management VIVIANA.Q8H (06/26/17 16:00) ^ Preps (06/26/17 16:00) Scd / Mohan / Foot Pump VIVIANA.QSHIFT (06/26/17 16:00) ^ Ultrasound For Locatio (06/26/17 16:00) Diet Npo (06/26/17 Dinner) Type And Screen (06/26/17 16:00) Complete Blood Count With Diff (06/26/17 16:00) Urinalysis - C+S If Indicated (06/26/17 16:00) Specimen To Be Collected PRN (06/26/17 16:00) Lactated Ringer's 1000 Ml Inj (Lr 1000 M (06/26/17 16:00) Lactated Ringer's 1000 Ml Inj (Lr 1000 M (06/26/17 16:30) Citric Acid-Sodium Citrate Liq (Bicitra (06/26/17 16:30) Cefazolin 2 Gm Premix (Ancef 2 Gm Premix (06/26/17 16:30) Group B Strep: Positive Labs Laboratory Tests Test 06/26/17 13:00 White Blood Count 11.0 Red Blood Count 4.32 Hemoglobin 12.8 Hematocrit 37.4 Mean Corpuscular Volume 86.6 Mean Corpuscular Hemoglobin 29.5 Mean Corpuscular Hemoglobin Concent 34.1 Red Cell Distribution Width 16.0 Platelet Count 152 Mean Platelet Volume 8.0 Neutrophils (%) (Auto) 72.1 Lymphocytes (%) (Auto) 18.3 Monocytes (%) (Auto) 8.7 Eosinophils (%) (Auto) 0.7 Basophils (%) (Auto) 0.2 Neutrophils # (Auto) 7.9 Lymphocytes # (Auto) 2.0 Monocytes # (Auto) 1.0 Eosinophils # (Auto) 0.1 Basophils # (Auto) 0.0 CBC Comment DIFF FINAL Differential Comment Urine Color LIGHT-YELLOW Urine Turbidity HAZY Urine pH 7.0 Urine Specific [place] 1.009 Urine Protein NEG Urine Glucose (UA) NEG Urine Ketones NEG Urine Occult Blood MOD Urine Nitrite NEG Urine Bilirubin NEG Urine Urobilinogen LESS THAN 2.0 Urine Leukocyte Esterase NEG Urine RBC 35 Urine WBC 2 Urine Squamous Epithelial Cells 6 Urine Bacteria RARE Microscopic Urinalysis Comment CULT NOT INDICATED Assessment/Plan Assessment and Plan 26 year old at 39-0/7 weeks gestation. 1. IUP- Category I tracing, reassuring. 2. Repeat . 3. GBS positive. Alejandrina Benitez Dr., MD, R3 Jun 26, 2017 17:57
[2017-06-26] MEDS ORDERED: ACETAMINOPHEN 1000 MG/100 ML 100 ML IV ONE (19:19)
[2017-06-26 19:27] LABS: BLOOD GAS BASE EXCESS -1.5 mmol/L (-2-2); BLOOD GAS O2 HGB SATURATION 42 % (90-100); CORD BLOOD GAS HCO3 25 mmol/L (21-29); CORD BLOOD GAS PCO2 56 mmHG (34-78); CORD BLOOD GAS PH 7.26 (7.14-7.42); CORD BLOOD GAS PO2 23 mmHG (3.0-40.0); DRAW SITE CORD BLOOD; STAT YES
[2017-06-26] MEDS ORDERED: diphenhydrAMINE HCL 50 MG/ML VIAL ONE (19:28)
[2017-06-26 20:00] VITALS: BP 111/56; PULSE 75; RESP 18; O2SAT 98
[2017-06-26] MEDS ORDERED: ONDANSETRON HCL 4 MG/2 ML VIAL IV PUSH PRN (20:00)
[2017-06-26] MEDS ORDERED: ACETAMINOPHEN 325 MG TAB PO PRN (20:00)
[2017-06-26] MEDS ORDERED: ZOLPIDEM TARTRATE 5 MG TAB PO PRN (20:00)
[2017-06-26] MEDS ORDERED: SODIUM CHLORIDE 0.9% FLUSH 10 ML FLUSH IV FLUSH PRN (20:00)
[2017-06-26] MEDS ORDERED: OXYTOCIN 30 UNITS-500ML PREMIX 500 ML IV ONE ×2 (20:00)
[2017-06-26] MEDS ORDERED: SIMETHICONE 80 MG CHEWABLE TAB PO PRN (20:00)
[2017-06-26] MEDS: LACTATED RINGER'S 1000 ML INJ 1,000 ML IV SCH ×2 (20:08→20:09)
[2017-06-26 20:15] VITALS: BP 125/62; PULSE 62; RESP 18; O2SAT 97
[2017-06-26 20:30] VITALS: BP 122/57; PULSE 77; RESP 18; O2SAT 97
[2017-06-26] MEDS ORDERED: OXYTOCIN 30 UNITS-500ML PREMIX 500 ML ONE (20:34)
[2017-06-26 20:44] VITALS: BP 129/62; PULSE 73; RESP 16; O2SAT 97
[2017-06-26] MEDS ORDERED: SODIUM CHLORIDE 0.9% FLUSH 10 ML FLUSH IV FLUSH SCH (21:00)
[2017-06-26 22:00] VITALS: BP 119/73; PULSE 71; RESP 18; TEMP 97.8
[2017-06-26] MEDS ORDERED: EPIDURAL-DIPHENHYDRAMINE HCL 50 MG/ML VIAL IV PUSH PRN (22:15)
[2017-06-26] MEDS ORDERED: EPIDURAL-DO NOT ADMINISTER ANTICOAGULANTS PRN (22:15)
[2017-06-26] MEDS ORDERED: EPIDURAL-NO SYSTEMIC NARCOTICS PRN (22:15)
[2017-06-26] MEDS ORDERED: EPIDURAL-DIPHENHYDRAMINE HCL 50 MG CAP PO PRN (22:15)
[2017-06-26] MEDS ORDERED: EPIDURAL-NALOXONE HCL 0.4 MG/ML AMP IV PUSH PRN (22:15)
[2017-06-27 02:00] VITALS: BP 104/53; PULSE 74; RESP 18; TEMP 98.3
[2017-06-27] MEDS ORDERED: OXYTOCIN 30 UNITS-500ML PREMIX 500 ML IV PRN (06:00)
[2017-06-27 06:02] LABS: AUTOMATED NEUTROPHIL # 11.9 TH/MM3 (1.8-7.7); BASOPHIL % 0.2 % (0.0-2.0); EOSINOPHIL % 0.1 % (0.0-4.0); HEMATOCRIT 34.8 % (35.0-46.0); HEMO FLAGS DIFF FINAL; LYMPH % 13.6 % (9.0-44.0); MEAN CORPUSCULAR HEMOGLOBIN 28.9 PG (27.0-34.0); MEAN CORPUSCULAR HGB CONC 33.2 % (32.0-36.0); MONO % 6.6 % (0.0-8.0); NEUT % 79.5 % (16.0-70.0); PLATELET COUNT 131 TH/MM3 (150-450); RED CELL DISTRIBUTION WIDTH 15.7 % (11.6-17.2); WHITE BLOOD COUNT 14.9 TH/MM3 (4.0-11.0)
[2017-06-27] MEDS: IBUPROFEN 600 MG TAB PO PRN ×3 (07:07→20:18)
[2017-06-27] MEDS: oxyCODONE/ACETAMINOPHEN 5 MG/325 MG TAB PO PRN ×3 (07:08→20:18)
[2017-06-27 08:00] VITALS: TEMP 97.9
[2017-06-27] MEDS ORDERED: INFLUENZA VIRUS VACCINE (QUADRIVALENT) 0.5 ML SYR IM ONE (09:00)
--- NOTE | 2017-06-27 09:37 | HHI.OB ---
Subjective Post Operative Day: 1 Remarks Doing well, Baby is doing well and in the NICU...(Baby was transvers lie.) Bleeding and pain are ok. Objective Vitals/I&O Vital Signs Date Time Temp Pulse Resp B/P (MAP) Pulse Ox O2 Delivery O2 Flow Rate FiO2 06/27/17 08:00 97.9 06/27/17 02:00 98.3 74 18 104/53 (70) 06/26/17 22:00 71 18 119/73 (88) 06/26/17 22:00 97.8 06/26/17 20:44 73 16 97 06/26/17 20:44 129/62 (84) 06/26/17 20:30 77 18 97 06/26/17 20:30 122/57 (78) 06/26/17 20:15 62 18 125/62 (83) 97 06/26/17 20:00 75 18 111/56 (74) 98 06/26/17 16:49 82 108/54 (72) Result Diagram: 06/27/17 0452 Objective Remarks GENERAL: Well-nourished, well-developed patient. CARDIOVASCULAR: Regular rate and rhythm without murmurs, gallops, or rubs. RESPIRATORY: Breath sounds equal bilaterally. No accessory muscle use. ABDOMEN/GI: Abdomen soft, non-tender, bowel sounds present. Incision: Clean, dry and intact. Fundus: Firm, non-tender at umbilicus. GENITOURINARY: Light to moderate bleeding. EXTREMITIES: No cyanosis or edema, non-tender, without signs of DVT. Medications and IVs Current Medications Medications (Trade) Dose Ordered Sig/Manasa Route Start Time Stop Time Status Last Admin Lactated Ringer's 1,000 ml @ 100 mls/hr Q10H IV 06/27/17 00:47 06/27/17 20:46 06/26/17 20:09 Oxytocin 500 ml @ 100 mls/hr UNSCH X1 PRN IV 06/27/17 06:00 06/28/17 05:59 (NS Flush) 2 ml BID IV FLUSH 06/26/17 21:00 (NS Flush) 2 ml UNSCH PRN IV FLUSH 06/26/17 20:00 (Mylicon Chew) 80 mg QID PRN PO 06/26/17 20:00 (Tylenol) 650 mg Q6H PRN PO 06/26/17 20:00 (Motrin) 600 mg Q6H PRN PO 06/26/17 20:00 06/27/17 07:07 (Percocet 5-325 Mg) 1 tab Q4H PRN PO 06/26/17 20:00 06/27/17 07:08 (Percocet 5-325 Mg) 2 tab Q4H PRN PO 06/26/17 20:00 Cefazolin Sodium 1000 mg/Sodium Chloride 100 ml @ 200 mls/hr Q8H IV 06/27/17 02:00 06/27/17 10:29 06/27/17 01:53 (Krista-Colace) 2 tab Q12H PRN PO 06/26/17 20:00 (Ambien) 5 mg HS PRN PO 06/26/17 20:00 (M-M-R Ii Inj) 0.5 ml ONCE ONCE SQ 06/27/17 16:00 06/27/17 16:01 (Boostrix Inj) 0.5 ml ONCE ONCE IM 06/27/17 16:00 06/27/17 16:01 (Zofran Inj) 4 mg Q6H PRN IV PUSH 06/26/17 20:00 Miscellaneous Information NO SYSTEMIC NARCOTICS TO BE GIVEN FO... UNSCH PRN .XX 06/26/17 22:15 06/27/17 22:14 (Narcan Inj) 0.4 mg UNSCH PRN IV PUSH 06/26/17 22:15 06/27/17 22:14 (Benadryl Inj) 25 mg Q6H PRN IV PUSH 06/26/17 22:15 06/27/17 22:14 06/26/17 22:37 (Benadryl) 50 mg Q6H PRN PO 06/26/17 22:15 06/27/17 22:14 Miscellaneous Information ALL NURSING DEPARTMENTS UNSCH PRN .XX 06/26/17 22:15 06/27/17 22:14 Assessment/Plan Assessment and Plan POD #1 Doing well Routine care.. Sandi Stevenson MD Jun 27, 2017 09:37
--- NOTE | 2017-06-27 10:07 | MP ---
cc: Sandi STEVENSON MD DATE OF SURGERY: 06/26/2017 PREOPERATIVE DIAGNOSIS: 1. Intrauterine at term. 2. Declined a V-Back. 3. Desires permanent sterilization. POSTOPERATIVE DIAGNOSIS: 1. Intrauterine at term. 2. Declined a V-Back. 3. Desires permanent sterilization. 4. Transverse lay. OPERATION: 1. Repeat low transverse section. 2. Bilateral tubal ligation. ANESTHESIA: Spinal. SURGEON: Sandi Stevenson MD. COSURGEON: Kindra Faulkner. FINDINGS: A normal female with APGARS of 3, 6 and 8, 8 pounds, 12 ounces, baby G PH 7.26. The uterus was normal. There may have been a little placenta accreta anteriorly as the endometrial service was rough. The tubes were normal in length and caliber, the ovaries were normal. The cul-de-sac was normal. COMPLICATIONS: The complications were a transverse lay. COUNTS: The counts were correct. ESTIMATED BLOOD LOSS: 700 cc. FLUIDS: Crystalloids. FINDINGS: The patient tolerated the procedure well, went to the Recovery Room in good condition. INDICATIONS FOR PROCEDURE: The patient came in and was suppose to have a repeat section tomorrow, she came in because of increasing pain. Since it was the afternoon and she had not eaten or drank we decided to just go ahead and do it tonight. PROCEDURE: She was taken to the operating room, identified by name band and verbally given a spinal anesthetic and under adequate level she was prepped and draped in the usual sterile manner for a section. A time out was taken and once agreed upon a Pfannenstiel incision was made, taken down to the fascia, the fascia was taken off the rectus muscle by blunt and sharp dissection. The rectus muscles were spread bluntly and the peritoneum was entered under direct vision without difficulty. The incision was extended with care to avoid the urinary bladder. The bladder blade was placed and the bladder flap was created in the usual fashion pushing bladder out of harms way. A transverse incision along the lower uterine segment was made. We discovered at this time the patient was not vertex. Once we entered the uterine cavity we noticed that the back was down and it was more of a shoulder presentation. It was quite difficult to find the feet. They were high up in the right upper quadrant. Once we grasped one foot we delivered it through the abdomen. From this we could see the buttock and we traced the other leg down and delivered that foot. At this point the thorax was delivered by gentle rotation and the arms were reduced bilaterally. The head was delivered with gentle fundal pressure without difficulty. The cord was immediately clamped and cut because the baby came out quite sloppy. The pediatric nurse practitioner was called in from the nursery to assist with the nursery nurses. Cord blood was obtained and the placental was delivered manually and then the arterial blood gas was sent off. The uterus was curettage sliced with the wet lap. It was noted that the anterior portion of the endometrium was quite rough, suspect a possible placental accreta however, bleeding was normal so we did not do anything about that. The uterine incision was then repaired with the zero Vicryl in a running fashion. The second layer imbricating the first with excellent results. Hemostasis was excellent. The left fallopian tube was gasped with a Chapo and a small incision was made in the mesosalpinx and a portion of the tube was tied off with zero chromic catgut and a small piece of tube was removed and sent for pathologic evaluation. This was repeated on the contralateral side. The cul-de-sac was cleaned of blood and debris and the uterus was delivered back into the abdomen. All incisions and pedicles were then inspected and were hemostatic. The rectus muscle was reapproximated with zero Vicryl in a running fashion. The fascia was repaired with 0 Vicryl from lateral to midline bilaterally. Posterior Vicryl. The subcutaneous is repaired with 2-0 Vicryl and the skin is repaired with 4-0 Monocryl in a subcuticular manner. At this time the patient was doing well. The patient tolerated the procedure well and went to the Recovery Room in good condition. The baby went to the intensive care unit because of the 's the baby was sloppy when delivered from the difficult delivery. R. MD GEGE Garza/melissa /7:51 PM /9:10 AM
[2017-06-27 12:00] VITALS: TEMP 97.8
[2017-06-27] MEDS ORDERED: OXYC1TAB63 PO (13:04)
[2017-06-27] MEDS ORDERED: IBUP-232 PO (13:04)
--- NOTE | 2017-06-27 13:05 | HHI.DCPOC ---
Discharge Care Plan Diagnosis: (1) delivery delivered Report Symptoms to Your Doctor -Temperature above 100.5 degrees -Redness, of incision or excessive or foul smelling drainage -Unusual pain or calf pain -Increased vaginal bleeding -Painful or difficulty urinating -Feelings of extreme sadness or anxiety after 2 weeks Goals to Promote Your Health * To prevent worsening of your condition and complications * To maintain your health at the optimal level Directions to Meet Your Goals Take your medications as prescribed Follow your dietary instruction Follow activity as directed Ensure plenty of rest for recovery Drink fluids for hydration Keep your appointments as scheduled Take your immunizations and boosters as scheduled If your symptoms worsen call your PCP, if no PCP go to Urgent Care Center or Emergency Room Smoking is Dangerous to Your Health. Avoid second hand smoke Call the 24-hour crisis hotline for domestic abuse at Sandi Stevenson MD Jun 27, 2017 13:05
[2017-06-27] MEDS ORDERED: MEASLES, MUMPS, RUBELLA VACCINE 0.5 ML VIAL SQ ONE (16:00)
[2017-06-27] MEDS ORDERED: DIPHTH/TETANUS/ACEL PERTUSSIS (BOOSTER) 0.5 ML VIAL/PFS IM ONE (16:00)
[2017-06-27] MEDS: DOCUSATE SODIUM 50 MG/SENNA 8.6 MG TAB PO PRN (20:17)
[2017-06-27 20:18] VITALS: BP 113/65; PULSE 96; RESP 18; TEMP 98
[2017-06-28 00:40] VITALS: RESP 16
[2017-06-28 01:30] VITALS: RESP 16
[2017-06-28 02:10] VITALS: RESP 16
[2017-06-28] MEDS: IBUPROFEN 600 MG TAB PO PRN ×4 (04:54→23:58)
[2017-06-28] MEDS: oxyCODONE/ACETAMINOPHEN 5 MG/325 MG TAB PO PRN ×4 (04:55→23:57)
[2017-06-28] MEDS: DOCUSATE SODIUM 50 MG/SENNA 8.6 MG TAB PO PRN (13:14)
--- NOTE | 2017-06-28 14:26 | HHI.OB ---
Subjective Post Operative Day: 2 Remarks Doing well, Pain is well controlled but still having some burning on the left side of the incision. Baby is in the NICU but is doing very well, Bleeding is normal Objective Vitals/I&O Vital Signs Date Time Temp Pulse Resp B/P (MAP) Pulse Ox O2 Delivery O2 Flow Rate FiO2 06/28/17 02:10 16 06/28/17 01:30 16 06/28/17 00:40 16 06/27/17 20:18 96 18 113/65 (81) 06/27/17 20:18 98.0 Result Diagram: 06/27/17 0452 Objective Remarks GENERAL: Well-nourished, well-developed patient. CARDIOVASCULAR: Regular rate and rhythm without murmurs, gallops, or rubs. RESPIRATORY: Breath sounds equal bilaterally. No accessory muscle use. ABDOMEN/GI: Abdomen soft, non-tender, bowel sounds present. Incision: Clean, dry and intact. Fundus: Firm, non-tender at umbilicus. GENITOURINARY: Light to moderate bleeding. EXTREMITIES: No cyanosis or edema, non-tender, without signs of DVT. Medications and IVs Current Medications Medications (Trade) Dose Ordered Sig/Manasa Route Start Time Stop Time Status Last Admin (NS Flush) 2 ml BID IV FLUSH 06/26/17 21:00 (NS Flush) 2 ml UNSCH PRN IV FLUSH 06/26/17 20:00 (Mylicon Chew) 80 mg QID PRN PO 06/26/17 20:00 06/28/17 13:14 (Tylenol) 650 mg Q6H PRN PO 06/26/17 20:00 (Motrin) 600 mg Q6H PRN PO 06/26/17 20:00 06/28/17 11:11 (Percocet 5-325 Mg) 1 tab Q4H PRN PO 06/26/17 20:00 06/27/17 20:18 (Percocet 5-325 Mg) 2 tab Q4H PRN PO 06/26/17 20:00 06/28/17 11:12 (Krista-Colace) 2 tab Q12H PRN PO 06/26/17 20:00 06/28/17 13:14 (Ambien) 5 mg HS PRN PO 06/26/17 20:00 (Zofran Inj) 4 mg Q6H PRN IV PUSH 06/26/17 20:00 Assessment/Plan Assessment and Plan POD #2 Doing well Incision had broken down last nite on the right side about 4 cm..used glue to reapproximate the edges. This morning it opened up about 1cm x 3mm.. We steristriped the entire incision. Will consider d/c home tomorrow. . Sandi Stevenson MD Jun 28, 2017 14:26
[2017-06-28 22:30] VITALS: BP 118/86; PULSE 96; RESP 20; TEMP 97.8
[2017-06-29] MEDS: oxyCODONE/ACETAMINOPHEN 5 MG/325 MG TAB PO PRN ×3 (06:39→21:02)
[2017-06-29] MEDS: IBUPROFEN 600 MG TAB PO PRN ×3 (06:40→21:02)
[2017-06-29] MEDS: DOCUSATE SODIUM 50 MG/SENNA 8.6 MG TAB PO PRN ×2 (06:42→21:02)
--- NOTE | 2017-06-29 08:07 | PD.PN.STU ---
Subjective Remarks POD3. Pt reports that she is doing better. still has some burning at site of incision but it has improved since yesterday. she was when I saw her Objective Vitals Vital Signs Date Time Temp Pulse Resp B/P (MAP) Pulse Ox O2 Delivery O2 Flow Rate FiO2 06/28/17 22:30 96 20 118/86 (97) 06/28/17 22:30 97.8 Result Diagram: 06/27/17 0452 Usman Ricci M3 Jun 29, 2017 08:07
--- NOTE | 2017-06-29 13:31 | HHI.OB ---
Subjective Post Operative Day: 3 Remarks Doing well, eating well Pain is controlled Ready to go home. Objective Vitals/I&O Vital Signs Date Time Temp Pulse Resp B/P (MAP) Pulse Ox O2 Delivery O2 Flow Rate FiO2 06/28/17 22:30 96 20 118/86 (97) 06/28/17 22:30 97.8 Result Diagram: 06/27/17 0452 Objective Remarks GENERAL: Well-nourished, well-developed patient. CARDIOVASCULAR: Regular rate and rhythm without murmurs, gallops, or rubs. RESPIRATORY: Breath sounds equal bilaterally. No accessory muscle use. ABDOMEN/GI: Abdomen soft, non-tender, bowel sounds present. Incision: Clean, dry and intact. Fundus: Firm, non-tender at umbilicus. GENITOURINARY: Light to moderate bleeding. EXTREMITIES: No cyanosis or edema, non-tender, without signs of DVT. Medications and IVs Current Medications Medications (Trade) Dose Ordered Sig/Manasa Route Start Time Stop Time Status Last Admin (NS Flush) 2 ml BID IV FLUSH 06/26/17 21:00 (NS Flush) 2 ml UNSCH PRN IV FLUSH 06/26/17 20:00 (Mylicon Chew) 80 mg QID PRN PO 06/26/17 20:00 06/28/17 13:14 (Tylenol) 650 mg Q6H PRN PO 06/26/17 20:00 (Motrin) 600 mg Q6H PRN PO 06/26/17 20:00 06/29/17 06:40 (Percocet 5-325 Mg) 1 tab Q4H PRN PO 06/26/17 20:00 06/27/17 20:18 (Percocet 5-325 Mg) 2 tab Q4H PRN PO 06/26/17 20:00 06/29/17 06:39 (Krista-Colace) 2 tab Q12H PRN PO 06/26/17 20:00 06/29/17 06:42 (Ambien) 5 mg HS PRN PO 06/26/17 20:00 (Zofran Inj) 4 mg Q6H PRN IV PUSH 06/26/17 20:00 Assessment/Plan Assessment and Plan POD #3 Doing well Incision is doing great with the steri strips. Home today. . Sandi Stevenson MD Jun 29, 2017 13:31
[2017-06-30] MEDS: oxyCODONE/ACETAMINOPHEN 5 MG/325 MG TAB PO PRN ×3 (06:16→16:44)
[2017-06-30] MEDS: IBUPROFEN 600 MG TAB PO PRN ×2 (06:16→12:48)
[2017-06-30 07:40] VITALS: BP 122/78; PULSE 78; RESP 18; TEMP 97.7
--- NOTE | 2017-06-30 08:04 | PD.PN.STU ---
Subjective Remarks POD#3 Patient is feeling well. Denies pain, fever, headache, and swelling. She has good appetite and normal amount of bleeding. She still has not had a bowel movement but is having flatulence. The incision does not appear infected and remains closed. Her burning sensation on the left side of her incision is still present but better. Breast feeding is going well. She said pediatrics intends to keep her baby at least one more day Objective Vitals Result Diagram: 06/27/17 0452 Objective Remarks Appears well and is ambulating regularly Pulm: lungs clear to auscultation, no rails, rhonchi, or wheezing Heart: regular rate and rhythm. normal s1 and s2 no edema noted Medications and IVs Allergies Coded Allergies lithium (Unverified Adverse Reaction, Unknown, vomiting, 05/02/17) paliperidone (Unverified Adverse Reaction, Unknown, elevated hormone , 05/02/17) Uncoded Allergies saphris ( Adverse Reaction, Unknown, face numbness, 09/04/16) Active Scripts Active Oxycodone-Acetaminophen 5-325 mg Tab 1 Tab PO Q4H PRN Ibuprofen 600 Mg Tab 600 Mg PO Q6H PRN Reported Plus Iron 29-1 mg ( Vit-Iron Carbonyl) 1 Tab Tab 1 Tab PO DAILY A/P Assessment and Plan POD#3 1. pain continue taking motorin around the clock and percocet as needed 2. constipation continue taking stool softeners 2. patient is ready for discharge. plan to place her on pediatrics floor with her child Usman Ricci Jun 30, 2017 08:04
[2017-06-30] MEDS: DOCUSATE SODIUM 50 MG/SENNA 8.6 MG TAB PO PRN (08:14)
== END 2017-06-30 17:24 | disposition home or self-care (01) | DRG 766 ==
LOC: HOBED 12:37 → H2EB 14:02 → H1EA 21:35
PROVIDERS: ADMIT Obstetrics & Gynecology; ATTEND Obstetrics & Gynecology
PROC: 10D00Z1 Extraction of Products of Conception, Low, Open Approach (ICD-10-PCS; principal; 2017-06-26)
PROC: 0U570ZZ Destruction of Bilateral Fallopian Tubes, Open Approach (ICD-10-PCS; 2017-06-26)
DX: O34.219 Maternal care for unspecified type scar from previous cesarean delivery (principal); F43.10 Post-traumatic stress disorder, unspecified; Z37.0 Single live birth; O99.344 Other mental disorders complicating childbirth; O32.2XX0 Maternal care for transverse and oblique lie, not applicable or unspecified; O99.824 Streptococcus B carrier state complicating childbirth; Z3A.39 39 weeks gestation of pregnancy; Z30.2 Encounter for sterilization
CPT/HCPCS: 59025; 81001; 82805; 85025; 86850; 86900; 86901; 88302; 90686; 90715; 96372; J0131; J0690; J1100; J1200; J2175; J2274; J2370; J2405; J2550; J2590; J3010; J7120; Q2038

== ENCOUNTER 2017-08-14 16:42 | Emergency (ER) | payer MEDICAID ==
[~2017-08-14 16:42] MED LIST changes: -DEXAMETHASONE SOD PHOS 4 MG/ML VIAL IV ONE; +IBUP-232 PO; -LACTATED RINGER'S 1000 ML INJ 2,000 ML IV ONE; -MORPHINE SULFATE PF 5 MG/10 ML VIAL ONE; -ONDANSETRON HCL 4 MG/2 ML VIAL IV PUSH ONE; +OXYC1TAB63 PO; -OXYTOCIN 10 UNIT/ML AMP IV ONE; -PHENYLEPH/NS 1000 MCG/10 ML SYR IV ONE; -PROPOFOL 200 MG/20 ML AMP IV ONE
[2017-08-14 16:44] VITALS: BP 164/94; PULSE 84; RESP 14; TEMP 98.2; O2SAT 99
[2017-08-14] MEDS ORDERED: SODIUM CHLORIDE 0.9% FLUSH 10 ML FLUSH IV FLUSH PRN (17:15)
[2017-08-14 17:57] LABS: AUTOMATED NEUTROPHIL # 5.6 TH/MM3 (1.8-7.7); BASOPHIL % 0.4 % (0.0-2.0); EOSINOPHIL # 0.1 TH/MM3 (0-0.4); EOSINOPHIL % 1.5 % (0.0-4.0); HEMATOCRIT 43.1 % (35.0-46.0); HEMO FLAGS DIFF FINAL; LYMPH % 29.8 % (9.0-44.0); LYMPHOCYTE # 2.7 TH/MM3 (1.0-4.8); MEAN CORPUSCULAR HEMOGLOBIN 29.2 PG (27.0-34.0); MEAN CORPUSCULAR HGB CONC 34.4 % (32.0-36.0); MONO % 7.4 % (0.0-8.0); NEUT % 60.9 % (16.0-70.0); PLATELET COUNT 192 TH/MM3 (150-450); RED BLOOD COUNT 5.08 MIL/MM3 (4.00-5.30); RED CELL DISTRIBUTION WIDTH 14.3 % (11.6-17.2); WHITE BLOOD COUNT 9.2 TH/MM3 (4.0-11.0)
[2017-08-14 18:08] LABS: APTT (PATIENT) 28.2 SEC (24.3-30.1); INTERNATIONAL NORMALIZED RATIO 0.9 RATIO; PROTHROMBIN TIME - PATIENT 10.2 SEC (9.8-11.6)
[2017-08-14 18:10] LABS: BACTERIA, URINE FEW /hpf; BLOOD, URINE MOD (NEG); COMMENT (UR) CULTURE INDICATED; CULTURE IF INDICATED CULTURE INDICATED; GLUCOSE,URINE NEG (NEG); KETONE, URINE NEG (NEG); MUCUS URINE FEW /lpf (OCC); NITRITE,URINE NEG (NEG); PH, URINE 5.5 (5.0-8.5); SQUAMOUS EPITHELIAL CELL URINE 9 /hpf (0-5); URINE COLOR LIGHT-YELLOW (YELLW/STRAW)
[2017-08-14 18:23] LABS: BICARBONATE 29.8 MEQ/L (21.0-32.0); POTASSIUM 3.7 MEQ/L (3.5-5.1)
[2017-08-14 18:41] VITALS: O2SAT 98
[2017-08-14 18:46] VITALS: BP 119/72; PULSE 76; RESP 18; O2SAT 99
--- NOTE | 2017-08-14 18:59 | PD ---
HPI Chief Complaint: Flank/Kidney Pain Time Seen by Provider: 18:39 Travel History International Travel<30 days: No Contact w/Intl Traveler<30days: No Traveled to known affect area: No History of Present Illness HPI 26-year-old female here for evaluation of left flank pain. The patient reports that she started having pain earlier today and radiates to her left lower abdomen. She reports history of kidney stones and states that the pain feels similar. Pain is sharp, constant, intermittently worse at times. She recently had a section and bilateral tubal ligation 2 months ago. She denies urinary symptoms. She is having subjective chills. 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, chronic neck pain) ?: Not : 3 Para: 3 Tubal Ligation: Yes Past Surgical History Section: Yes (X3) Social History Alcohol Use: No Tobacco Use: No Substance Use: No Allergies-Medications (Allergen,Severity, Reaction): Coded Allergies: lithium (Unverified Adverse Reaction, Unknown, vomiting, 08/14/17) paliperidone (Unverified Adverse Reaction, Unknown, elevated hormone , 08/14/17) Uncoded Allergies: saphris (Adverse Reaction, Unknown, face numbness, 09/04/16) Reported Meds & Prescriptions Reported Meds & Active Scripts Active Reported Plus Iron 29-1 mg ( Vit-Iron Carbonyl) 1 Tab Tab 1 Tab PO DAILY Review of Systems Except as stated in HPI: all other systems reviewed are Neg Physical Exam Narrative GENERAL: Well-developed, well-nourished, comfortable, no apparent distress. SKIN: Focused skin assessment warm/dry. No rash. Lower abdominal/pelvic horizontal incision from section with small area of delayed healing, no purulent, no fluctuance, no induration, no erythema. HEAD: Atraumatic. Normocephalic. EYES: Pupils equal and round. No scleral icterus. No injection or drainage. ENT: Mucous membranes pink and moist. NECK: Trachea midline. No JVD. CARDIOVASCULAR: Regular rate and rhythm. RESPIRATORY: No accessory muscle use. Clear to auscultation. Breath sounds equal bilaterally. GASTROINTESTINAL: Abdomen soft, non-tender, mild suprapubic tenderness. MUSCULOSKELETAL: No obvious deformities. No clubbing. No cyanosis. No edema. Moderate left CVA tenderness. No right CVA tenderness. NEUROLOGICAL: Awake and alert. No obvious cranial nerve deficits. Motor grossly within normal limits. Normal speech. PSYCHIATRIC: Appropriate mood and affect; insight and judgment normal. Data Data Last Documented VS Vital Signs Date Time Temp Pulse Resp B/P (MAP) Pulse Ox O2 Delivery O2 Flow Rate FiO2 08/14/17 18:46 76 18 119/72 (88) 99 Room Air 08/14/17 16:44 98.2 Orders Orders Basic Metabolic Panel (Bmp) (08/14/17 17:02) Complete Blood Count With Diff (08/14/17 17:02) Prothrombin Time / Inr (Pt) (08/14/17 17:02) Act Partial Throm Time (Ptt) (08/14/17 17:02) Urinalysis - C+S If Indicated (08/14/17 17:02) Iv Access Insert/Monitor (08/14/17 17:02) Ecg Monitoring (08/14/17 17:02) Oximetry (08/14/17 17:02) Sodium Chloride 0.9% Flush (Ns Flush) (08/14/17 17:15) Ed Urine Pregnancytest Poc (08/14/17 17:02) Urine Culture (08/14/17 17:10) Ct Abd/Pel W/O Iv Contrast (08/14/17 18:52) Ceftriaxone Inj (Rocephin Inj) (08/14/17 19:00) Ketorolac Inj (Toradol Inj) (08/14/17 19:00) Labs Laboratory Tests Test 08/14/17 17:10 08/14/17 17:29 Urine Color LIGHT-YELLOW Urine Turbidity HAZY Urine pH 5.5 Urine Specific [place] 1.011 Urine Protein NEG mg/dL Urine Glucose (UA) NEG mg/dL Urine Ketones NEG mg/dL Urine Occult Blood MOD Urine Nitrite NEG Urine Bilirubin NEG Urine Urobilinogen LESS THAN 2.0 MG/DL Urine Leukocyte Esterase SMALL Urine RBC 49 /hpf Urine WBC 7 /hpf Urine WBC Clumps RARE Urine Squamous Epithelial Cells 9 /hpf Urine Bacteria FEW /hpf Urine Mucus FEW /lpf Microscopic Urinalysis Comment CULTURE INDICATED White Blood Count 9.2 TH/MM3 Red Blood Count 5.08 MIL/MM3 Hemoglobin 14.8 GM/DL Hematocrit 43.1 % Mean Corpuscular Volume 85.0 FL Mean Corpuscular Hemoglobin 29.2 PG Mean Corpuscular Hemoglobin Concent 34.4 % Red Cell Distribution Width 14.3 % Platelet Count 192 TH/MM3 Mean Platelet Volume 6.9 FL Neutrophils (%) (Auto) 60.9 % Lymphocytes (%) (Auto) 29.8 % Monocytes (%) (Auto) 7.4 % Eosinophils (%) (Auto) 1.5 % Basophils (%) (Auto) 0.4 % Neutrophils # (Auto) 5.6 TH/MM3 Lymphocytes # (Auto) 2.7 TH/MM3 Monocytes # (Auto) 0.7 TH/MM3 Eosinophils # (Auto) 0.1 TH/MM3 Basophils # (Auto) 0.0 TH/MM3 CBC Comment DIFF FINAL Differential Comment Prothrombin Time 10.2 SEC Prothromb Time International Ratio 0.9 RATIO Activated Partial Thromboplast Time 28.2 SEC Blood Urea Nitrogen 20 MG/DL Creatinine 0.84 MG/DL Random Glucose 85 MG/DL Calcium Level 9.6 MG/DL Sodium Level 137 MEQ/L Potassium Level 3.7 MEQ/L Chloride Level 100 MEQ/L Carbon Dioxide Level 29.8 MEQ/L Anion Gap 7 MEQ/L Estimat Glomerular Filtration Rate 81 ML/MIN [facility] Medical Decision Making Medical Screen Exam Complete: Yes Emergency Medical Condition: Yes Medical Record Reviewed: Yes Differential Diagnosis Pyelonephritis, nephrolithiasis, UTI, cystitis, colitis, appendicitis, PID/ endometritis Narrative Course Vital signs show heart rate 76, blood pressure 118/72, pulse ox 99% on room air , oral temp of 98.2F. CBC is unremarkable. BMP is unremarkable. UA: Hazy, moderate occult blood, small leukocyte esterase, 49 RBCs, 7 wbc's, rare wbc clumps, few bacteria. CT abdomen pelvis: CONCLUSION: 1. There are a number of bilateral subcentimeter renal calculi. 2. On the left, pelvocaliectasis and hydroureter appear to be due to a 4 mm stone which has just passed through the left UVJ and sits at the base of the left side of the bladder Patient was made aware of all findings. She is given a dose of IV Toradol, and on reassessment states her pain has resolved. She was given a dose of IV Rocephin as well as and will be started on Ceftin. She is stable for discharge home with outpatient follow-up with a urologist this week. She was informed on when to return to the emergency department. She verbalizes understanding and agreement with plan. Diagnosis Primary Impression: Nephrolithiasis Additional Impression: UTI (urinary tract infection) Qualified Codes: N39.0 - Urinary tract infection, site not specified; R31.9 - Hematuria, unspecified Referrals: John Fernandes DO 3 days Urologist Additional Instructions: Follow-up with urologist Dr. Fernandes or a urologist of your choice this week. Return to the emergency department for worsening symptoms or any other concerns. Scripts Cefuroxime (Ceftin) 250 Mg Tab 500 MG PO BID for 7 Days, #28 TAB Prov: Toby Avalos MD 08/14/17 Disposition: 01 DISCHARGE HOME Condition: Stable Toby Avalos MD Aug 14, 2017 18:59
[2017-08-14] MEDS ORDERED: cefTRIAXone INJ 1,000 MG in SODIUM CHLORIDE 0.9% INJ 100 ML IV ONE (19:00)
[2017-08-14] MEDS ORDERED: KETOROLAC TROMETHAMINE 30 MG/ML (IVP) VIAL IV PUSH ONE (19:00)
--- NOTE | 2017-08-14 20:51 | RADRPT ---
EXAM DATE/TIME: 08/14/2017 19:27 [facility] COMPARISON: No previous studies available for comparison. INDICATIONS : Left flank abdomen pain. ORAL CONTRAST: No oral contrast ingested. RADIATION DOSE: 20.19 CTDIvol (mGy) MEDICAL HISTORY : Renal calculi. SURGICAL HISTORY : section. Tubal ligation. ENCOUNTER: Initial ACUITY: 1 day PAIN SCALE: 8/10 LOCATION: Left flank TECHNIQUE: Volumetric scanning of the abdomen and pelvis was performed. Using automated exposure control and ad justment of the mA and/or kV according to patient size, radiation dose was kept as low as reasonably achievable to obtain optimal diagnostic quality images. DICOM format image data is available electro nically for review and comparison. FINDINGS: LOWER LUNGS: The visualized lower lungs are clear. LIVER: Homogeneous density without lesion. There is no dilation of the biliary tree. No calcified gallston es. SPLEEN: Normal size without lesion. PANCREAS: Within normal limits. KIDNEYS: Normal in size and shape. Innumerable, bilateral subcentimeter renal calculi that, in themselves do n ot appear to result in obstruction. However, there is left-sided pelvocaliectasis and hydroureter due to 4 mm stone which appears to have just passed through the UVJ and rests on the left bladder base. Punctate calculus in the left pelvis appears to be adjacent to the dilated left ureter on the coronal reconstructions and I believe represents a phlebolith. VASCULAR: There is no aortic aneurysm. BOWEL/MESENTERY: The stomach, small bowel, and colon demonstrate no acute abnormality. There is no free intraperitone al air or fluid. ABDOMINAL WALL: Within normal limits. RETROPERITONEUM: There is no lymphadenopathy. BLADDER: No wall thickening or mass. REPRODUCTIVE: Within normal limits. INGUINAL: There is no lymphadenopathy or hernia. MUSCULOSKELETAL: Within normal limits for patient age. CONCLUSION: 1. There are a number of bilateral subcentimeter renal calculi. 2. On the left, pelvocaliectasis and hydroureter appear to be due to a 4 mm stone which has just pass ed through the left UVJ and sits at the base of the left side of the bladder Harvinder Pham MD on August 14, 2017 at 20:41 Board Certified Radiologist. This report was verified electronically.
[2017-08-14] MEDS ORDERED: CEFU1TAB18 PO (21:14)
== END 2017-08-14 21:24 | disposition home or self-care (01) ==
LOC: NEPD 16:42
DX: N20.0 Calculus of kidney (principal); N39.0 Urinary tract infection, site not specified; R31.9 Hematuria, unspecified; N13.4 Hydroureter; F41.9 Anxiety disorder, unspecified; Z87.442 Personal history of urinary calculi
CPT/HCPCS: 74176; 80048; 81001; 84703; 85025; 85610; 85730; 87086; 96365; 96366; 96375; 99285; J0696; J1885